=== PATIENT | female | born 1965 | race Caucasian/White ===

== ENCOUNTER 2023-05-04 09:34 | Emergency (ER) | payer OTHER, SELFPAY ==
--- NOTE | ~2023-05-04 | XR_ITS ---
EXAMINATION: XR ankle LT min 3V DATE: 05/04/2023 11:00 INDICATION: Left ankle pain TECHNIQUE: Anteroposterior, lateral, mortise, and additional oblique view of the ankle were obtained. COMPARISON: None. FINDINGS: Bone alignment is normal. There is no acute fracture. Heterotopic ossification distal to th e medial malleolus likely reflects prior injury. There is mild soft tissue swelling of the ankle and proximal foot. Posterior and plantar enthesophytes are noted. IMPRESSION: 1. No acute osseous abnormality. Reviewed, dictated and finalized at location A.
[2023-05-04 10:15] VITALS: BP 151/69; PULSE 66; RESP 18; TEMP 36.6; O2SAT 100
--- NOTE | 2023-05-04 10:46 | ED.LOWEXIN ---
HPI - Extremity Injury (Lower) General Chief Complaint: Extremity Injury, Lower Stated Complaint: lt ankle pain Time Seen by Provider: 05/04/23 10:37 Source: patient and RN notes reviewed Mode of arrival: ambulatory (with crutches) Limitations: no limitations History of Present Illness HPI Narrative: Patient presents today complaining of left anterior ankle pain that has been intermittent over the past week, and worse since 2:00 a.m. this morning as she was going to stand from a sitting position in her bathroom. 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 States she has had this ankle pain for several days in a row, primarily in the mornings and has significantly lessened or disappeared throughout the day. She has been able to do her normal exercises/running/biking, but today her pain has worsened to the point where she is unable to weightbear. She denies any specific injury or trauma to her ankle. Pain increases with active range of motion, specifically internal rotation of the ankle. At rest she has no pain, but with weight-bearing she rates her pain 8/10. She denies numbness or tingling to the ankle or foot. She took some ibuprofen this morning, which did provide some relief. Related Data Allergies Allergy/AdvReac Type Severity Reaction Status Date / Time terbinafine [From Lamisil] Allergy Hives Verified 05/04/23 10:21 Review of Systems Review of Systems: CONSTITUTIONAL: Denies body aches, fever, chills, or sweats. EYES: Denies visual changes, redness, or discharge. ENT: Denies rhinorrhea, congestion, sore throat, or otalgia. CARDIOVASCULAR: Denies chest pain, palpitations, or edema. RESPIRATORY: Denies cough or dyspnea. GASTROINTESTINAL: Denies abdominal pain, nausea, vomiting, or diarrhea. GENITOURINARY: Denies dysuria or hematuria. SKIN: Denies rash, itching, or wounds. MUSCULOSKELETAL: Denies back pain, or myalgia.+ left ankle pain NEUROLOGIC: Denies headache, numbness, tingling, or weakness. PSYCH: Denies depression or anxiety. PMFSH Comments At time of signature, I have reviewed and agree with nursing past medical, surgical, social and family history unless otherwise noted. Please see nursing chart for further information. There is no relevant family history pertinent to the presenting complaint Exam Narrative: GENERAL: Well-appearing, well-nourished, and in no acute distress. HEAD: Normocephalic, atraumatic. EYES: EOMI. No redness or drainage. Conjunctivae normal. ENT: Mucous membranes pink and moist. NECK: Normal AROM. CHEST: No respiratory distress. EXTREMITIES: Left ankle: No tenderness about the entire ankle or foot. No edema, ecchymosis, or deformity noted. Patient has some pain in the anterior ankle with passive internal rotation. Distal sensation intact. Capillary refill normal. Pedal pulse normal. SKIN: Warm, dry, no rash. Capillary refill normal. Normal skin turgor. NEURO: No focal deficits. Alert and oriented x3. Gait steady. PSYCH: Normal affect. No signs of depression or anxiety. Course Course Level of Care: Express Care Visit Vital Signs Vital signs: Vital Signs Temperature 97.9 F 05/04/23 10:15 Pulse Rate 66 05/04/23 10:15 Respiratory Rate 18 05/04/23 10:15 Blood Pressure 151/69 H 05/04/23 10:15 Pulse Oximetry 100 05/04/23 10:15 Oxygen Delivery Room Air 05/04/23 10:15 Temperature 97.9 F 05/04/23 10:15 Pulse Rate 66 05/04/23 10:15 Respiratory Rate 18 05/04/23 10:15 Blood Pressure 151/69 H 05/04/23 10:15 Pulse Oximetry 100 05/04/23 10:15 Oxygen Delivery Room Air 05/04/23 10:15 Reviewed. Pt has been instructed to follow up with her PCP regarding her elevated blood pressure today. MDM - Extremity Injury (Lower) MDM Narrative Medical decision making narrative: Discussed x-ray results with patient. She agrees with plan for short course of steroids. She
== END 2023-05-04 12:12 | disposition home or self-care (01) ==
PROVIDERS: Emergency Provider Nurse Practitioner
DX: M25.572 Pain in left ankle and joints of left foot (principal)
CPT/HCPCS: 73610; 99213; G0463